=== PATIENT | female | born 1960 | race Caucasian/White ===

== ENCOUNTER → 2023-08-29 15:29 | Outpatient (REF) | payer MEDICARE, SELFPAY | LOC: HWRAD 15:29 | PROVIDERS: ATTENDING PHYSICIAN Otolaryngology; FAMILY PHYSICIAN Nurse Practitioner; REFERRING PHYSICIAN Internal Medicine Geriatric Medicine | DX: J32.4 Chronic pansinusitis (principal) | CPT/HCPCS: 70486 ==

== ENCOUNTER → 2023-10-02 08:29 | Outpatient (REF) | payer MEDICARE, SELFPAY | LOC: HWRAD 08:29 | PROVIDERS: ATTENDING PHYSICIAN Internal Medicine Geriatric Medicine; REFERRING PHYSICIAN Nurse Practitioner | DX: N95.9 Unspecified menopausal and perimenopausal disorder (principal) | CPT/HCPCS: 77080 ==

== ENCOUNTER → 2023-12-29 13:46 | Outpatient (REF) | payer MEDICARE, SELFPAY | LOC: EMG 13:46 | PROVIDERS: ATTENDING PHYSICIAN Physician Assistant Surgical; FAMILY PHYSICIAN Internal Medicine Geriatric Medicine | DX: M54.16 Radiculopathy, lumbar region (principal) | CPT/HCPCS: 95886; 95910 ==

== ENCOUNTER → 2024-01-21 12:25 | Outpatient (REF) | payer MEDICARE, SELFPAY | LOC: MRI 3T 12:25 | PROVIDERS: ATTENDING PHYSICIAN Physician Assistant Surgical; FAMILY PHYSICIAN Internal Medicine Geriatric Medicine | DX: M25.561 Pain in right knee (principal); M62.58 Muscle wasting and atrophy, not elsewhere classified, other site | CPT/HCPCS: 73718; 73721 ==

== ENCOUNTER → 2024-02-14 15:04 | Outpatient (REF) | payer MEDICARE, SELFPAY | LOC: WDC 15:04 | PROVIDERS: ATTENDING PHYSICIAN Obstetrics & Gynecology; FAMILY PHYSICIAN Internal Medicine Geriatric Medicine | DX: Z12.31 Encounter for screening mammogram for malignant neoplasm of breast (principal) | CPT/HCPCS: 77063; 77067 ==

== ENCOUNTER → 2024-03-05 14:53 | Outpatient (REF) | payer OTHER, SELFPAY | LOC: HWRAD 14:53 | PROVIDERS: ATTENDING PHYSICIAN Student in an Organized Health Care Education/Training Program; FAMILY PHYSICIAN Internal Medicine Geriatric Medicine | DX: E07.9 Disorder of thyroid, unspecified (principal) | CPT/HCPCS: 76536 ==

== ENCOUNTER 2024-03-18 13:53 | Outpatient (RCR) | payer OTHER, SELFPAY | END 2024-03-18 23:59 | disposition home or self-care (01) | LOC: RPT 13:53 | PROVIDERS: ATTENDING PHYSICIAN Orthopaedic Surgery; FAMILY PHYSICIAN Nurse Practitioner Adult Health | DX: M17.11 Unilateral primary osteoarthritis, right knee (principal); Z73.6 Limitation of activities due to disability; R26.89 Other abnormalities of gait and mobility; T14.8XXD Other injury of unspecified body region, subsequent encounter | CPT/HCPCS: 97110; 97140; 97163 ==

== ENCOUNTER 2024-03-25 10:45 | Emergency (ER) | payer OTHER, SELFPAY ==
[2024-03-25] VITALS (7 sets, daily range): BP systolic 133–169; BP diastolic 61–85; BMI 28.8
[2024-03-25 12:57] LABS: % Basophils 0.7 % (0-2); % Eosinophils 0.7 % (0-6); % Immature Granulocytes 0.3 % (0-0.5); % Lymphocytes 23.8 % (20.5-51.1); % Monocytes 10.8 % (1.7-9.3); % Neutrophils 63.7 % (42.2-75.2); Absolute Basophils 0.1 10^3/uL (0-0.2); Absolute Eosinophils 0.1 10^3/uL (0-0.7); Absolute Lymphocytes 1.6 10^3/uL (1.2-3.4); Absolute Monocytes 0.7 10^3/uL (0.1-0.6); Absolute Neutrophils 4.2 10^3/uL (1.4-6.5); Hematocrit 40.7 % (37.0-47.0); Hemoglobin 14.2 g/dL (12.0-16.0); Mean Corp Hgb Conc. 34.9 g/dL (33.0-37.0); Mean Corpuscular Hgb 33.5 pg (27.0-31.0); Mean Platelet Volume 11.2 fL (7.4-10.4); Nucleated Red Blood Cells % 0 %; Platelet Count 209 10^3/uL (130-400); Red Blood Cell Count 4.24 10^6/uL (4.20-5.40); Red Cell Dist. Width 12.8 % (11.5-14.5); White Blood Cell Count 6.7 10^3/uL (4.8-10.8)
[2024-03-25 13:13] LABS: ALT (SGPT) 11 U/L (0-35); AST (SGOT) 27 U/L (14-36); Alkaline Phosphatase 66 U/L (38-126); Blood Urea Nitrogen 16 mg/dl (7-17); Carbon Dioxide 29 mmol/L (22-30); Chloride 102 mmol/L (98-107); Estimated Creatinine Clearance 95 ml/min; Glucose 91 mg/dl (70-99); Potassium 4.2 mmol/L (3.5-5.1); Sodium 137 mmol/L (135-145); Total Bilirubin 0.6 mg/dl (0.2-1.3); Total Protein 6.2 g/dl (6.3-8.2); eGFR > 60.00
[2024-03-25 13:24] LABS: Troponin I < 0.012 ng/ml
--- NOTE | 2024-03-25 15:29 | ED.GENMED ---
History of Present Illness
General
Chief Complaint: Chest Problem
Source: patient
Exam Limitations: none
Time Seen by Provider: 03/25/24 12:52
History of Present Illness
History of Present Illness:
63-year-old female with history of asthma presents complaining of chest discomfort onset last night. The pain is pleuritic in nature. She notes shortness of breath. She has a history of asthma and typically when she has tightness like this she
uses her inhaler and the symptoms improve however it has yet to improve. She is healthy otherwise.
Past History
Past History
ED Past Medical History: Asthma
ED Past Surgical History: Other (Discectomy)
Social History
Tobacco: Non-smoker
Personal:
Living: with family
Phy Exam
Physical Exam
Physical Exam:
General: Well-appearing female no acute respiratory distress
HEENT: Normocephalic atraumatic
Heart: RRR,
Lungs: CTA bilaterally
Abd: soft, nontender
Ext: no cyanosis
Skin: Warm rash or lesions.
Course
Orders/Labs/Results
Orders:
Orders
03/25/24 10:48
Electrocardiogram (*1) Urgent
Reason for Study: Chest Pain
EKG- Treatment ONCE
03/25/24 12:37
Complete Blood Count/With Diff Urgent
Comprehensive Metabolic Panel Urgent
Troponin I Urgent
03/25/24 13:04
CT Chest PE Study Urgent
Comment:
Reason For Exam: left chest pain
03/25/24 15:46
Ketorolac [Toradol] 15 mg IV NOW STA
Abnormal Lab Results
03/25/24
12:37
MCH 33.5 H pg
(27.0-31.0)
MPV 11.2 H fL
(7.4-10.4)
Absolute Monos (auto) 0.7 H 10^3/uL
(0.1-0.6)
Monocytes % 10.8 H %
(1.7-9.3)
Total Protein 6.2 L g/dl
(6.3-8.2)
03/25/24 12:37
03/25/24 12:37
Vital Signs
Initial and Last Documented VS:
Initial Vital Signs
Temp Pulse Resp BP Pulse Ox
99.1 F 66 16 146/83 98
03/25/24 10:55 03/25/24 10:55 03/25/24 10:55 03/25/24 10:55 03/25/24 10:55
Last Documented Vital Signs
Temp Pulse Resp BP Pulse Ox
97.7 F 64 17 169/85 98
03/25/24 12:39 03/25/24 13:15 03/25/24 13:15 03/25/24 13:00 03/25/24 13:15
MDM/Problems Addressed
Differential Diagnosis Includes:
Chest discomfort. Consider ACS versus PE versus chest wall pain. Patient flies frequently. PE study ordered
Labs reviewed troponin negative EKG shows normal sinus rhythm without ischemic changes.
Pulse ox 100% heart rate normal
*Critical Care Note
Total Time (30-74mins, 75-104mins- exclusive of procedures): Not Applicable
Update Note
Update Note:
PE study negative for pulmonary embolism lungs are clear. Troponin undetectable. Patient's symptoms improved with Toradol. I suspect chest wall discomfort. Will recommend NSAIDs stable for discharge
ED Attending Note
-
Portions of this chart may have been created with voice recognition software.� Occasional wrong word or��sound alike� substitutions may have occurred due to the inherent limitations of voice recognition software.
Discharge Plan
Departure
Patient Disposition: Home (Routine Discharge)
Date of Disposition: 03/25/24
Time of Disposition: 16:54
Patient with high blood pressure during this ER visit?: No
Discharge Problem:
Chest pain
Instructions: Chest Pain PCP Follow Up
Prescriptions:
New
ibuprofen 600 mg tablet
600 mg PO Q8H PRN (Reason: Pain) Qty: 30 0RF
No Action
gabapentin 300 mg Capsule
300 mg PO HS
Gemtesa 75 mg Tablet
75 mg PO DAILY
hydrocodone-acetaminophen 5-325 mg tablet
1 tab PO BID PRN (Reason: pain) Qty: 14 0RF
diclofenac potassium 50 mg tablet
50 mg PO BID PRN (Reason: pain) Qty: 14 0RF
Referrals:
Feng Bianchi MD [Family Provider] -
Activity Restrictions/Additional Instructions:
As discussed, your workup here is negative. Your discomfort may be coming from your chest wall. Use ibuprofen if needed for pain. Return for worsening symptoms otherwise follow-up with your doctor
Interventions
Interventions:
*Risk Screen - Suicide Last Done: 03/25/24 10:55
*General Assessment Last Done: 03/25/24 12:28
*Neglect/Abuse Screening Last Done: 03/25/24 10:55
ED- Fall Risk Assessment Last Done: 03/25/24 12:37
*ED COVID-19 Vaccine History Last Done: 03/25/24 12:28
ED- Cardiac Assessment Last Done: 03/25/24 12:36
ED- Pulmonary Assessment Last Done: 03/25/24 12:36
Discharge Date and Time
Print Language: SETSWANA
[2024-03-25] MEDS: TORADOL 15 MG IV (15:52)
== END 2024-03-25 17:34 | disposition home or self-care (01) ==
LOC: EMR 10:45
PROVIDERS: EMERGENCY PHYSICIAN Emergency Medicine; FAMILY PHYSICIAN Internal Medicine Geriatric Medicine
DX: R07.89 Other chest pain (principal); J45.909 Unspecified asthma, uncomplicated
CPT/HCPCS: 99285; 96374; 71275; 80053; 84484; 85025; 93005; Q9967

== ENCOUNTER 2024-04-10 14:00 | Outpatient (RCR) | payer OTHER, SELFPAY | END 2024-04-10 23:59 | disposition home or self-care (01) | LOC: RPT 14:00 | PROVIDERS: ATTENDING PHYSICIAN Orthopaedic Surgery; FAMILY PHYSICIAN Nurse Practitioner Adult Health | DX: M17.11 Unilateral primary osteoarthritis, right knee (principal); Z73.6 Limitation of activities due to disability; R26.89 Other abnormalities of gait and mobility; T14.8XXD Other injury of unspecified body region, subsequent encounter | CPT/HCPCS: 97110; 97530 ==

== ENCOUNTER 2024-05-30 06:02 | Day surgery (SDC) | payer OTHER, SELFPAY ==
[2024-05-13 13:56] VITALS: BMI 28.5
[2024-05-13 14:10] LABS: Hematocrit 41.5 % (37.0-47.0); Mean Corp Hgb Conc. 33.7 g/dL (33.0-37.0); Mean Corpuscular Hgb 33.4 pg (27.0-31.0); Mean Platelet Volume 11.6 fL (7.4-10.4); Platelet Count 246 10^3/uL (130-400); Red Blood Cell Count 4.19 10^6/uL (4.20-5.40); Red Cell Dist. Width 14.2 % (11.5-14.5); White Blood Cell Count 4.2 10^3/uL (4.8-10.8)
[2024-05-13 14:34] LABS: Glycohemoglobin (HgbA1c) 4.7 % (4.0-5.6)
[2024-05-13 14:45] LABS: ALT (SGPT) 12 U/L (0-35); AST (SGOT) 24 U/L (14-36); Albumin 3.9 g/dl (3.5-5.0); Alkaline Phosphatase 77 U/L (38-126); Blood Urea Nitrogen 18 mg/dl (7-17); Calcium 9.4 mg/dl (8.4-10.2); Carbon Dioxide 30 mmol/L (22-30); Chloride 102 mmol/L (98-107); Estimated Creatinine Clearance 73 ml/min; Glucose 93 mg/dl (70-99); Potassium 5.2 mmol/L (3.5-5.1); Sodium 137 mmol/L (135-145); Total Bilirubin 0.4 mg/dl (0.2-1.3); Total Protein 6.2 g/dl (6.3-8.2); eGFR > 60.00
[2024-05-13 15:32] VITALS: BMI 28.5
[2024-05-30] VITALS (21 sets, daily range): BP systolic 102–140; BP diastolic 45–88; PULSE 74; O2SAT 98
[2024-05-30] MEDS: TYLENOL 650 MG PO ×5 (06:21→23:15)
[2024-05-30] MEDS: MOBIC 15 MG PO (06:21)
[2024-05-30] MEDS: NORMOSOL-R/PLASMALYTE-A 1000 IV ×2 (06:42→10:00)
--- NOTE | 2024-05-30 06:53 | W.DS.TRANS ---
DC Summary - [employer] Att[employer]
-
Discharge Instructions:
Sleep Apnea Risk Low
Discharge Diagnosis/Procedures R TKA 05/30/24
Diet As tolerated
Activity With Walker
Driving Restrictions No driving
Bathing Restrictions OK to Shower
Other Services PT
Instructions:
Stand-Alone Forms: Total Hip/Knee Replacement D/C
Changes to Home Medications: Yes
Discharge Medications:
DC Medications w/original date entered in [employer]
Fish Oil 1 dose PO DAILY 05/10/24
Peak For Her 1 dose PO DAILY 05/10/24
Probiotic 1 dose PO DAILY 05/10/24
Spm Active 1 dose PO DAILY 05/10/24
Ultra 4 Spectrum Probiotic 1 dose PO DAILY 05/10/24
cetirizine 10 mg tablet (Zyrtec) 10 mg PO HS 05/10/24
prasterone (dhea)-calcium carbonate 10 mg-47 mg calcium tablet (DHEA) 1 tab PO DAILY 05/10/24
progesterone 100 mg PO HS 05/10/24
testosterone 1 dose PO DAILY 05/10/24
vitamin B complex 1 tab PO DAILY 05/10/24
vitamin D3-vitamin K2 1 dose PO DAILY 05/10/24
zinc 50 mg tablet 50 mg PO DAILY 05/10/24
mupirocin 2 % topical ointment 1 applic intranasal BID #1 tube 05/13/24
acetaminophen 325 mg tablet (Tylenol) 650 mg (2 x 325 mg) PO QID #1 tab 05/30/24
aspirin 325 mg tablet 325 mg PO DAILY blood clot prevention #1 tab 05/30/24
dexamethasone 4 mg tablet 4 mg PO BID inflammation #6 tabs 05/30/24
docusate sodium 100 mg capsule (Colace) 100 mg PO BID stool softner #1 cap 05/30/24
famotidine 20 mg tablet 20 mg PO HS GI prophylaxis #30 tabs 05/30/24
gabapentin 300 mg capsule 300 mg PO HS sleep/pain #10 caps 05/30/24
hydrocodone 5 mg-acetaminophen 325 mg tablet 1 tab PO Q6H PRN 1 tab moderate pain or 2 if severe #30 tabs 05/30/24
magnesium hydroxide 400 mg/5 mL oral suspension (Milk of Magnesia) 30 ml PO HS PRN Constipation #1 mL 05/30/24
meloxicam 15 mg tablet 15 mg PO DAILY anti-inflammatory #14 tabs 05/30/24
ondansetron 4 mg disintegrating tablet 4 mg PO Q6H PRN n/v #20 tabs 05/30/24
sennosides 8.6 mg tablet (Senokot) 17.2 mg (2 x 8.6 mg) PO BID laxative #2 tabs 05/30/24
Home Medication Changes
mupirocin 2 % topical ointment 1 applic intranasal BID #1 tube 05/13/24
acetaminophen 325 mg tablet (Tylenol) 650 mg (2 x 325 mg) PO QID #1 tab 05/30/24
aspirin 325 mg tablet 325 mg PO DAILY blood clot prevention #1 tab 05/30/24
dexamethasone 4 mg tablet 4 mg PO BID inflammation #6 tabs 05/30/24
docusate sodium 100 mg capsule (Colace) 100 mg PO BID stool softner #1 cap 05/30/24
famotidine 20 mg tablet 20 mg PO HS GI prophylaxis #30 tabs 05/30/24
gabapentin 300 mg capsule 300 mg PO HS sleep/pain #10 caps 05/30/24
hydrocodone 5 mg-acetaminophen 325 mg tablet 1 tab PO Q6H PRN 1 tab moderate pain or 2 if severe #30 tabs 05/30/24
magnesium hydroxide 400 mg/5 mL oral suspension (Milk of Magnesia) 30 ml PO HS PRN Constipation #1 mL 05/30/24
meloxicam 15 mg tablet 15 mg PO DAILY anti-inflammatory #14 tabs 05/30/24
ondansetron 4 mg disintegrating tablet 4 mg PO Q6H PRN n/v #20 tabs 05/30/24
sennosides 8.6 mg tablet (Senokot) 17.2 mg (2 x 8.6 mg) PO BID laxative #2 tabs 05/30/24
Pending Results: No
[2024-05-30] MEDS: ZOFRAN 4 MG IV ×2 (09:17→15:55)
[2024-05-30] MEDS: NORCO 5/325 1 TABLET PO (10:53)
--- NOTE | 2024-05-30 13:40 | PTCARENOTE ---
Pt received from the PACU via bed. Transport was w/o incident. Pt is AAOX3, Pt's right knee with Mepilex dressing C/D/I, Pt denies nausea, and c/o right knee pain rating 7/10 on pain scale. Will medicate for pain as ordered. Pt is able to wiggle
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 VSS, Pt is afebrile. Pt instructed on plan of care, Pt verbalized understanding of instructions. Call molina
is within reach.
[2024-05-30] MEDS: DILAUDID 0.5 MG IV (14:17)
[2024-05-30] MEDS: ANCEF 5 IV ×2 (14:17→21:21)
[2024-05-30] MEDS: VISBIOME 1 CAP PO (14:18)
--- NOTE | 2024-05-30 16:17 | OR.RPT ---
Operative Report
Operative Report
Orthopaedic Surgery Operative Note
DATE OF OPERATION: 05/30/2024
PREOPERATIVE DIAGNOSES: Osteoarthritis, right knee.
POSTOPERATIVE DIAGNOSES: Osteoarthritis, right knee.
OPERATION PERFORMED:
1) Right total knee arthroplasty (CPT 64961)
2) Intraosseous administration of analgesic (CPT 34963)
SURGEON: Pedro Clark MD
ASSISTANTS: Demetri Ward PA-C who helped with patient and limb positioning and retraction
ANESTHESIA: Spinal by anesthesia plus intraoperative infusion of morphine into the tibial metaphysis by Dr. Clark
COMPLICATIONS: None.
ESTIMATED BLOOD LOSS: 20mL
DRAINS: None
TOURNIQUET TIME: 43 minutes.
IMPLANTS:
- Elias Persona CR Femur, size 8
- Elias Persona tibia base plate, size D
- Elias Persona medial constrained articular surface, 12 mm
- All-polyethylene patellar component, size 29
- DJO Jackson bone cement
INDICATIONS: The patient presented to my office with debilitating right knee pain due to osteoarthritis. We reviewed the natural history of this problem, as well as the risks, benefits, and alternatives of various treatment options. The patient
exhausted all nonoperative treatment options and wished to proceed with knee replacement surgery. The patient understood the risks which included, but were not limited to, bleeding, infection, failure to relieve pain, more pain than preop, damage to
blood vessels and nerves, need for reoperation, mechanical failure of the implants, wound healing problems, stiffness, instability, blood clot, pulmonary embolism, myocardial infarction, pneumonia, arrhythmia, CVA, and . The patient accepted
these risks and wished to proceed. All questions were answered, and informed consent was obtained.
PROCEDURE IN DETAIL: The patient was identified in the preoperative holding area. The right knee was identified as the operative site. The patient was taken in the operating room and placed in a supine position on the operating table. Spinal/General
anesthesia was performed. IV antibiotics and tranexamic acid were administered. An SCD was placed on the left lower extremity. A well-padded tourniquet was placed on the proximal thigh. All bony prominences were well padded. The right lower
extremity was prepped and draped in the usual sterile fashion.
We performed a surgical time-out. An interarticular block was performed with local anesthetic with epinephrine. The limb was exsanguinated with an Esmarch bandage, then the tourniquet was inflated to 250 mmHg. I performed interosseous administration
of morphine-saline solution via a Jamshidi style intraosseous needle into the proximal medial tibial metaphysis as described by Ken Armijo MD. This was performed to aid in pain control. A midline skin incision was made followed by a medial
parapatellar arthrotomy. A subperiosteal peel was performed on the medial tibia. I excised part of the infrapatellar fat pad to improve our visualization as well as tissue over anterior femur. The patella was everted and the knee was flexed. I
excised the remnants of the anterior and posterior cruciate ligaments as well as tibial and femoral osteophytes with rongeurs.
The knee was flexed, and the extramedullary tibial cutting guide was aligned. Moore was aligned at neutral, rotation was centered on the tibial tubercle, and coronal alignment was aligned with the mechanical axis of the tibia and center of the ankle
joint. The cut height was 2mm off the lateral tibia joint surface due to valgus. The guide was secured into place. The MCL and LCL were protected. The tibia surface was cut. The cut surface was inspected after removal to ensure appropriate height
and slope based on the preoperative plan. The cut was checked with a drop amrit. It was centered nicely at the ankle.
A drill was used to open the femoral canal. The intramedullary distal femoral cutting guide was inserted into the femur. This was set at 6 degrees +0. This was secured into place with three pins. The cut level was checked with an rafael wing. The
distal femur was cut through the cutting guide. The IM guide was reinserted to double check that the level of resection was flush and in appropriate alignment.
Fargo�s line and the transepicondylar axis were marked on the femur. The femoral sizing guide was applied to the anterior femur. Pins were inserted, and the 4-in-1 cutting guide was applied and secured into place. The rotation was compared to
Fargo�s line, the transepicondylar axis, and the neutral tibia cut and was found to be appropriate. The width was checked and found to be appropriate and lateralized on the femur. The anterior, posterior, and chamfur cuts were made. A lamina
cut off saw set up operator was used to open the flexion gap, and posterior osteophytes were removed with a curved osteotome. The remnant medial and lateral meniscus were also removed. I prophylactically cauterized the lateral geniculate arteries. A 10mm spacer block
was applied to the flexion gap and was noted to be balanced medially and laterally. The knee was extended, and the block showed symmetric to extension and flexion gaps.
The tibia was exposed and sized. Rotation was set in line with the tibial tubercle and congruent with the femur. The trial was secured into place with two pins. The trial femur was impacted into place, and a trial articular surface was placed. The
knee was taken through range of motion and noted to be stable throughout the arc of motion without gaping or excess tension. In extension, a measured resection of the patella was performed. The patella was sized, and lug holes were drilled. A trial
patella component was applied, and it was noted to track centrally throughout the arc of motion without need for further releases.
The trials were removed. The tibia keel was prepared with the punch and the drill. The bone surfaces were irrigated with sterile saline and dried. The cement was mixed in a vacuum mixer. Cement gun was used to apply cement to the tibial surface and
the undersurface of the tibial implant. Cement was pressurized into the tibial canal and tibia surface. The tibial component was impacted into place. Excess cement was removed. Cement was applied to the femoral surface and the femoral component. The
femoral component was impacted into place, and excess cement removed. A trial articular surface was inserted, and the knee was extended while the cement polymerized. The tourniquet was let down, and meticulous hemostasis was achieved. Dilute
betadine was poured into the wound and allowed to soak for 3 minutes. The knee was irrigated with copious normal saline.
Once the cement was polymerized, the trial articular surface was removed. Any excess cement was removed. The knee was trialed, and the final articular surface was selected and inserted into the tibial locking mechanism. The knee was reduced. A fresh
drape was applied to the surgical field.
The arthrotomy was closed with 0-PDS. Once closed, an interarticular block was performed with local anesthetic with epi. The deep dermal layer was closed with 2-0 PDS, and the subcuticular skin was closed with 3-0 monocryl. A Dermabond Prineo
dressing was applied to the skin in full flexion. Once this was completely dry, a sterile waterproof dressing was applied.
The anesthesia team performed an adductor canal block in the OR. The patient awoke from anesthesia without any difficulties. The sponge and instrument counts were correct x2 at the end of the case.
Shaw Clark MD
[2024-05-30] MEDS: VALIUM 5 MG PO ×2 (17:18→23:14)
[2024-05-30] MEDS: LYRICA 100 MG PO ×2 (17:19→23:15)
[2024-05-30] MEDS: ASPIRIN 325 MG PO (17:19)
[2024-05-30] MEDS: SENOKOT 17.2 MG PO (20:50)
[2024-05-30] MEDS: BACTROBAN 2% OINTMENT 1 APPLIC NASAL (20:50)
[2024-05-30] MEDS: COLACE 100 MG PO (20:50)
[2024-05-30] MEDS: ULTRAM 50 MG PO (21:23)
[2024-05-30] MEDS: ZYRTEC 10 MG PO (21:23)
[2024-05-30] MEDS: TORADOL 15 MG IV (23:14)
[2024-05-30] MEDS: DECADRON 4 MG IV (23:15)
[2024-05-31 03:10] VITALS: BP 120/56
[2024-05-31] MEDS: TYLENOL PO (04:45)
[2024-05-31] MEDS: TORADOL 15 MG IV (06:12)
[2024-05-31] MEDS: ULTRAM 50 MG PO (06:12)
[2024-05-31] MEDS: DECADRON 4 MG IV (06:12)
[2024-05-31 07:05] VITALS: BP 116/59
[2024-05-31 09:02] VITALS: BP 128/63; BP 130/67; PULSE 75; O2SAT 100
[2024-05-31] MEDS: SENOKOT 17.2 MG PO (09:22)
[2024-05-31] MEDS: COLACE 100 MG PO (09:22)
[2024-05-31] MEDS: LYRICA 100 MG PO (09:22)
[2024-05-31] MEDS: ASPIRIN 325 MG PO (09:22)
[2024-05-31] MEDS: BACTROBAN 2% OINTMENT 1 APPLIC NASAL (09:22)
[2024-05-31] MEDS: TYLENOL 650 MG PO (09:22)
[2024-05-31] MEDS: VISBIOME 1 CAP PO (09:22)
[2024-05-31 09:30] VITALS: BP 128/59; PULSE 75; O2SAT 99
[2024-05-31] MEDS: VALIUM PO (09:33)
--- NOTE | 2024-05-31 09:48 | W.PN.ORTHO ---
Today's Communication / Plan
-
d/c
Assessment
.
Distal Motor Intact: Yes
Dressing:
Clean, dry and intact.
Assessment:
Spasm-severe after surgery-added Lyrica and Valium--resolved this am off meds
Plan
.
Surgery / Date: R TKA 05/30/24
DVT Prophylaxis: Aspirin
Activity:
Out of bed.
PT/OT
Discharge Plan: Home w/ Outpatient PT
Subjective
.
.:
Patient resting comfortably.
Vital Signs and Labs
.
Vital Signs and Labs:
Lab Results
05/13/24 12:53
05/13/24 12:53
Temp Pulse Resp BP Pulse Ox
98.3 F 75 16 116/59 97
05/31/24 07:05 05/31/24 07:05 05/31/24 07:05 05/31/24 07:05 05/31/24 07:05
Non-invasive Hgb result: 12.0
Physical Exam
-
HEENT: No pallor, cyanosis, or jaundice. Throat clear.
NECK: Supple. No JVD.
RESPIRATORY: Lungs clear to auscultation.
CVS: S1, S2 normal. RRR.� No murmur, rub or gallop.
ABDOMEN: Soft, non-tender. No distension. BS+/normal.
EXTREMITIES: strength equal, no calf pain with palpation
PUBLIC WELFARE DIRECTOR: AOx3. No focal deficits. raftsman grossly intact
--- NOTE | 2024-05-31 10:14 | CM ---
Initial assessment completed
Pt reports she lives with her in a 3 story home; 1 [address]; 14 steps to FF
Independent, drives
DME - rolling walker, single point cane, raised toilet
SNF/HH - denies past hx
Has ride at d/c
PCP - Gera Snow
Pharm - [facility]. Has Rx/transport
Given IMM
Plan - home with outpatient PT
== END 2024-05-31 11:35 | disposition home or self-care (01) | DRG 470 ==
LOC: SDS 06:02
PROVIDERS: ATTENDING PHYSICIAN Orthopaedic Surgery; REFERRING PHYSICIAN Internal Medicine Geriatric Medicine
PROC: 0SRC069 Replacement of Right Knee Joint with Oxidized Zirconium on Polyethylene Synthetic Substitute, Cemented, Open Approach (ICD-10-PCS; 2024-05-30)
DX: M17.11 Unilateral primary osteoarthritis, right knee (principal); E83.110 Hereditary hemochromatosis
CPT/HCPCS: 27447; 36415; 73560; 80053; 83036; 85027; 87070; 93005; 97110; 97116; 97162; 97166; 97530; 97535; C1713; C1776

== ENCOUNTER 2024-06-24 14:01 | Outpatient (RCR) | payer OTHER, SELFPAY | END 2024-06-24 23:59 | disposition home or self-care (01) | LOC: RPT 14:01 | PROVIDERS: ATTENDING PHYSICIAN Orthopaedic Surgery | DX: Z47.1 Aftercare following joint replacement surgery (principal); M17.11 Unilateral primary osteoarthritis, right knee; Z73.6 Limitation of activities due to disability; R26.2 Difficulty in walking, not elsewhere classified; M62.81 Muscle weakness (generalized); R26.89 Other abnormalities of gait and mobility; M25.561 Pain in right knee; Z96.651 Presence of right artificial knee joint | CPT/HCPCS: 97010; 97110; 97140; 97161 ==

== ENCOUNTER 2024-07-19 10:56 | Outpatient (RCR) | payer OTHER, SELFPAY | END 2024-07-19 23:59 | disposition home or self-care (01) | LOC: RPT 10:56 | PROVIDERS: ATTENDING PHYSICIAN Orthopaedic Surgery | DX: Z47.1 Aftercare following joint replacement surgery (principal); M17.11 Unilateral primary osteoarthritis, right knee; R26.2 Difficulty in walking, not elsewhere classified; Z73.6 Limitation of activities due to disability; M62.81 Muscle weakness (generalized); R26.89 Other abnormalities of gait and mobility; M25.561 Pain in right knee; Z96.651 Presence of right artificial knee joint | CPT/HCPCS: 97010; 97110; 97530 ==

== ENCOUNTER 2024-08-19 15:09 | Outpatient (RCR) | payer MEDICARE, OTHER, SELFPAY | END 2024-08-19 23:59 | disposition home or self-care (01) | LOC: RPT 15:09 | PROVIDERS: ATTENDING PHYSICIAN Orthopaedic Surgery | DX: Z47.1 Aftercare following joint replacement surgery (principal); Z96.651 Presence of right artificial knee joint; M17.11 Unilateral primary osteoarthritis, right knee; Z73.6 Limitation of activities due to disability; R26.2 Difficulty in walking, not elsewhere classified; M62.81 Muscle weakness (generalized); R26.89 Other abnormalities of gait and mobility; M25.561 Pain in right knee | CPT/HCPCS: 97010; 97016; 97110; 97530 ==

== ENCOUNTER 2024-09-25 11:43 | Outpatient (RCR) | payer MEDICARE, OTHER, SELFPAY | END 2024-09-25 23:59 | disposition home or self-care (01) | LOC: RPT 11:43 | PROVIDERS: ATTENDING PHYSICIAN Orthopaedic Surgery | DX: Z47.1 Aftercare following joint replacement surgery (principal); M17.11 Unilateral primary osteoarthritis, right knee; Z73.6 Limitation of activities due to disability; R26.2 Difficulty in walking, not elsewhere classified; M62.81 Muscle weakness (generalized); R26.89 Other abnormalities of gait and mobility; M25.561 Pain in right knee; Z96.651 Presence of right artificial knee joint | CPT/HCPCS: 97110; 97140; 97530 ==

== ENCOUNTER 2024-12-24 08:36 | Outpatient (RCR) | payer MEDICARE, OTHER, SELFPAY | END 2024-12-24 23:59 | disposition home or self-care (01) | LOC: RPT 08:36 | PROVIDERS: ATTENDING PHYSICIAN Orthopaedic Surgery | DX: Z47.1 Aftercare following joint replacement surgery (principal); Z73.6 Limitation of activities due to disability; M25.561 Pain in right knee; M25.661 Stiffness of right knee, not elsewhere classified; R20.0 Anesthesia of skin; R26.89 Other abnormalities of gait and mobility; M62.81 Muscle weakness (generalized); Z96.651 Presence of right artificial knee joint | CPT/HCPCS: 97010; 97110; 97140; 97162 ==

== ENCOUNTER 2024-12-31 08:22 | Outpatient (RCR) | payer MEDICARE, OTHER, SELFPAY | END 2025-01-01 05:47 | disposition home or self-care (01) | LOC: RPT 08:22 | PROVIDERS: ATTENDING PHYSICIAN Orthopaedic Surgery | DX: Z47.1 Aftercare following joint replacement surgery (principal); Z73.6 Limitation of activities due to disability; M25.561 Pain in right knee; M25.661 Stiffness of right knee, not elsewhere classified; R20.0 Anesthesia of skin; R26.89 Other abnormalities of gait and mobility; M62.81 Muscle weakness (generalized); Z96.651 Presence of right artificial knee joint | CPT/HCPCS: 97010; 97110; 97140 ==

== ENCOUNTER 2025-01-15 15:57 | Emergency (ER) | payer MEDICARE, OTHER, SELFPAY ==
[2025-01-15 16:01] VITALS: BP 158/65
[2025-01-15 17:43] VITALS: BMI 27.5
[2025-01-15 17:44] VITALS: BP 148/87
--- NOTE | 2025-01-15 19:29 | ED.GENMED ---
History of Present Illness
General
Chief Complaint: Musculo-Skeletal Complaint
Source: patient
Exam Limitations: none
Time Seen by Provider: 01/15/25 17:38
Nursing documentation reviewed up to this point in time: agreed with
History of Present Illness
History of Present Illness:
see MDM
Past History
Past History
ED Past Medical History: Asthma
ED Past Surgical History: Other (Discectomy)
Social History
Tobacco: Non-smoker
Personal:
Living: with family
Review of Systems
Review of Systems
Allergies reviewed?: Yes
All Other Systems: Not applicable
Phy Exam
Physical Exam
Physical Exam:
GENERAL: Alert , in no apparent distress
EYE: pupils equal and reactive
NECK: Supple
ENT: o/p clr, mmm.
CARDIAC: Regular rate and rhythm .
LUNGS: Clear breath sounds bilaterally, no acute respiratory distress, no wheezes/rales/rhonchi
ABDOMEN: Soft, without focal tenderness, no r/g, no cvat, normal bowel sounds
NEUROLOGICAL: Alert and oriented, no focal neuro deficits
SKIN: Warm and dry, skin intact.
MUSCULOSKELETAL: Normal inspection of both lower extremities, no tenderness to palpation of the knee, there is slight tenderness to the palpation of the posterior calf, no cord, no swelling appreciated, normal pulse, warm and perfused foot, normal
range of motion of the foot and ankle and knee. When she walks she takes a couple steps and then gets a sharp pain in the left calf and then nearly falls but never fully fell. Does not seem like she is weak, she has no numbness
PSYCH: Normal and appropriate interaction.
Course
Orders/Labs/Results
Orders:
Orders
01/15/25 16:06
US Legs, Left [US Periph Venous LOWER Ext LT] Urgent
Comment:
Reason For Exam: pain in calf and behind knee
01/15/25 18:50
CR Knee - Left 4 Or More View* Urgent
Comment:
Reason For Exam: L knee giving out
Tib/Fib, Left 2 View [CR Leg Tibia/fibula Left 2 Vw] Urgent
Comment:
Reason For Exam: left leg pain
01/15/25 19:48
CPK [Creatine Phosphokinase] Urgent
Complete Blood Count/With Diff Urgent
Comprehensive Metabolic Panel Urgent
01/15/25 21:01
Ketorolac [Toradol] 30 mg IM NOW STA
01/15/25 22:09
Crutches-Treatment ONCE
Abnormal Lab Results
01/15/25
19:48
MCH 32.5 H pg
(27.0-31.0)
MPV 10.5 H fL
(7.4-10.4)
Monocytes % 9.7 H %
(1.7-9.3)
Creatine Kinase 25 L U/L
(30-135)
01/15/25 19:48
01/15/25 19:48
Vital Signs
Initial and Last Documented VS:
Initial Vital Signs
Temp Pulse Resp BP Pulse Ox
36.6 C 63 20 158/65 99
01/15/25 16:01 01/15/25 16:01 01/15/25 16:01 01/15/25 16:01 01/15/25 16:01
Last Documented Vital Signs
Temp Pulse Resp BP Pulse Ox
36.6 C 85 18 147/75 99
01/15/25 16:01 01/15/25 21:45 01/15/25 21:45 01/15/25 21:45 01/15/25 21:45
MDM/Problems Addressed
Differential Diagnosis Includes:
see MDM
MDM/Problems Addressed:
Note:
CHIEF COMPLAINT(S)
Right leg pain and sudden instability.
HISTORY OF PRESENT ILLNESS
The patient is a 64-year-old female who reports awakening with sudden onset left leg pain and instability. She describes the pain as commencing early yesterday morning when she attempted to walk down the [place] and feeling pain behind her L knee/calf
that made her feel like her leg is going to give out. ' She localizes the pain below the knee and reports that it intensifies with walking, making ambulation difficult and requiring assistance from others. There was no reported fall or specific
injury leading to these symptoms. The patient denied any known history of arthritis or knee replacement. She is currently attending physical therapy for her leg issues and attended a session today but struggled to walk due to pain and weakness. The
patient has taken Valium and ibuprofen 600 mg for pain relief. She has a history of urinary urgency managed with supplements. She denies any previous history of blood clots.
The patient expressed concerns about potential vascular issues, specifically DVT
ynes tto PT today and was sent here
pt is in PT for her R knee and R IT band
no numbness/tingling/weakness, foot drop, color change, knee swelling, calf swelling, recent travel, trauma, pain radiating from back
MEDICATIONS
- Valium (as needed for this issue)
- Ibuprofen 600mg (as needed for pain)
PHYSICAL EXAM
- GENERAL: Alert , in no apparent distress
EYE: pupils equal and reactive
NECK: Supple
ENT: o/p clr, mmm.
CARDIAC: Regular rate and rhythm .
LUNGS: Clear breath sounds bilaterally, no acute respiratory distress, no wheezes/rales/rhonchi
ABDOMEN: Soft, without focal tenderness, no r/g, no cvat, normal bowel sounds
NEUROLOGICAL: Alert and oriented, no focal neuro deficits
SKIN: Warm and dry, skin intact.
MUSCULOSKELETAL: No edema, well perfused. neg luci's sign
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
plantarflex her ankle normally, sensation intact, when she walks she takes a couple steps and gets a buckling pain in her left calf causing her to nearly fall. She does not seem like she is weak. Has no proprioception problems
PSYCH: Normal and appropriate interaction.
Nursing notes reviewed and vital signs reviewed.
PROBLEM LIST
Acute Problems:
- Right leg pain and sudden instability
PLAN
- Order blood work to evaluate electrolytes and check for rhabdomyolysis.
- Order an x-ray of the right leg to assess for any underlying structural issues.
- Consider ultrasound if further vascular evaluation is deemed necessary.
- Continue pain management with ibuprofen, and consider Valium for muscle spasm relief if indicated.
- Discuss alternative pain management options, including the potential prescription of Vicodin if pain management is inadequate with current medications.
DIFFERENTIAL DIAGNOSIS
The Differential Diagnosis includes, in no particular order and is not limited to:
1. Bakers cyst
2. Vascular deficiency
3. Rhabdomyolysis
4. Arthritis-related pain (osteoarthritis or rheumatoid arthritis)
5. Meniscal injury
6. Ligamentous injury of the knee
7. Neuropathy
8. Muscle spasm or strain
9. Blood clot (Deep vein thrombosis)
10. Electrolyte imbalance
CARE-UPDATE
01/15/25 - 21:34
Patient has no pain at rest but she still has some pain with walking, the crutches are helping her
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 It does not seem neurologic, does not seem vascular, she has got a good pulse and negative DVT study. X-rays are unremarkable
after independently read and reviewed by me. Her labs show a normal CK and potassium. Recommended using Valium for muscle spasms and an anti-inflammatory such as ibuprofen, meloxicam, or Aleve. Advised alternating heat and cold therapy, with an
emphasis on heat for muscle spasms. Patient instructed to use a cane or crutches to avoid full weight-bearing on the affected leg. Discussed history of autoimmune conditions in the family, noting patients existing positive ALEX without confirmed
lupus. Suggested stretching exercises, like glute bridges, may have overstrained the muscle. Advised to minimize movement and use Toradol for inflammation. Plan includes reassessment after following these interventions and considering an MRI if
symptoms persist.
*Pulse Oximetry
SaO2: 99
Oxygen Mode of Delivery: Room air
Patient hypoxic: no (99)
*Critical Care Note
Total Time (30-74mins, 75-104mins- exclusive of procedures): Not Applicable
ED Attending Note
-
Portions of this chart may have been created with voice recognition software.� Occasional wrong word or��sound alike� substitutions may have occurred due to the inherent limitations of voice recognition software.
Discharge Plan
Departure
Patient Disposition: Home (Routine Discharge)
Date of Disposition: 01/15/25
Time of Disposition: 21:32
Patient with high blood pressure during this ER visit?: No
Condition: Fair
Covid-19: Not Applicable
Discharge Problem:
Gastrocnemius muscle strain
Instructions: Muscle Strain (DC)
Prescriptions:
No Action
cetirizine [Zyrtec] 10 mg Tablet
10 mg PO HS
zinc 50 mg Tablet
50 mg PO DAILY
DHEA 10 mg-47 mg calcium Tablet
1 tab PO DAILY
Fish Oil
1 dose PO DAILY
Probiotic
1 dose PO DAILY
Spm Active
1 dose PO DAILY
testosterone
1 dose PO DAILY
vitamin B complex Tablet
1 tab PO DAILY
Peak For Her
1 dose PO DAILY
Ultra 4 Spectrum Probiotic
1 dose PO DAILY
progesterone
100 mg PO HS
vitamin D3-vitamin K2
1 dose PO DAILY
mupirocin 2 % ointment
1 applic intranasal BID Qty: 1 0RF
Patient Comments:
last dose was this am. pt started on 05/27/24.
aspirin 325 mg tablet
325 mg PO DAILY Qty: 1 0RF
Rx Instructions:
Take with food
docusate sodium [Colace] 100 mg capsule
100 mg PO BID Qty: 1 0RF
hydrocodone-acetaminophen 5-325 mg tablet
1 tab PO Q6H PRN (Reason: 1 tab moderate pain or 2 if severe) Qty: 30 0RF
Rx Instructions:
Dx orthopedic surgery
ongoing therapy
famotidine 20 mg tablet
20 mg PO HS Qty: 30 0RF
Rx Instructions:
post-op
dexamethasone 4 mg tablet
4 mg PO BID Qty: 6 0RF
Rx Instructions:
take with food
post-op use only
gabapentin 300 mg capsule
300 mg PO HS Qty: 10 0RF
Rx Instructions:
*POST-OP USE ONLY
meloxicam 15 mg tablet
15 mg PO DAILY Qty: 14 0RF
Rx Instructions:
take with food
post-op
magnesium hydroxide [Milk of Magnesia] 400 mg/5 mL suspension
30 ml PO HS PRN (Reason: Constipation) Qty: 1 0RF
sennosides [Senokot] 8.6 mg tablet
17.2 mg PO BID Qty: 2 0RF
ondansetron 4 mg tablet,disintegrating
4 mg PO Q6H PRN (Reason: n/v) Qty: 20 0RF
Rx Instructions:
take 1/2h b/f pain med if recurrent nausea
allow to dissolve in mouth w/o water
acetaminophen [Tylenol] 325 mg tablet
650 mg PO QID Qty: 1 0RF
Rx Instructions:
SCHEDULED DOSING
Referrals:
Gera Snow CRNP [Family Provider]
Activity Restrictions/Additional Instructions:
Your pain could be from a strain or spasm of your Gaster anemias muscle. Try heat and ice alternating. Use the crutches to help partial weightbearing. Use your Valium as directed for muscle spasm and take your ibuprofen every 8 hours starting
tomorrow for pain and inflammation. Make sure to follow-up with orthopedics as you planned. Return for swelling, skin changes, weakness in the leg, numbness tingling foot drop, fever etc.
Interventions
Interventions:
*Risk Screen - Suicide Last Done: 01/15/25 16:01
*General Assessment Last Done: 01/15/25 16:01
*Neglect/Abuse Screening Last Done: 01/15/25 16:01
*ED- Fall Risk Assessment Last Done: 01/15/25 18:32
*ED COVID-19 Vaccine History Last Done: 01/15/25 17:45
*ED Influenza Vaccine History Last Done: 01/15/25 17:45
*Nursing Disposition Last Done: 01/15/25 21:50
ED-Musculoskeletal Assessment Last Done: 01/15/25 17:44
Discharge Date and Time
Discharge Date/Time: 01/15/25 21:55
Print Language: OCCITAN
[2025-01-15 19:57] VITALS: BP 153/78
[2025-01-15 20:01] LABS: Hematocrit 40.8 % (37.0-47.0); Hemoglobin 13.8 g/dL (12.0-16.0); Mean Corp Hgb Conc. 33.8 g/dL (33.0-37.0); Mean Corpuscular Volume 96.2 fL (81.0-99.0); Nucleated Red Blood Cells % 0 %; Platelet Count 238 10^3/uL (130-400); Red Cell Dist. Width 13.3 % (11.5-14.5)
[2025-01-15 20:26] LABS: ALT (SGPT) 10 U/L (0-35); AST (SGOT) 23 U/L (14-36); Albumin 4.1 g/dl (3.5-5.0); Alkaline Phosphatase 67 U/L (38-126); Blood Urea Nitrogen 15 mg/dl (7-17); Calcium 9.5 mg/dl (8.4-10.2); Carbon Dioxide 27 mmol/L (22-30); Chloride 103 mmol/L (98-107); Estimated Creatinine Clearance 91 ml/min; Glucose 84 mg/dl (70-99); Potassium 4.4 mmol/L (3.5-5.1); Sodium 135 mmol/L (135-145); Total Protein 6.3 g/dl (6.3-8.2); eGFR > 60.00
[2025-01-15] MEDS: TORADOL 30 MG IM (21:21)
[2025-01-15 21:45] VITALS: BP 147/75
== END 2025-01-15 21:55 | disposition home or self-care (01) ==
LOC: EMR 15:57
PROVIDERS: Physician Assistant; EMERGENCY PHYSICIAN Student in an Organized Health Care Education/Training Program
DX: S86.812A Strain of other muscle(s) and tendon(s) at lower leg level, left leg, initial encounter (principal); X58.XXXA Exposure to other specified factors, initial encounter; J45.909 Unspecified asthma, uncomplicated
CPT/HCPCS: 99284; 96372; 73564; 73590; 80053; 82550; 85025; 93971

== ENCOUNTER 2025-01-20 10:03 | Outpatient (RCR) | payer MEDICARE, OTHER, SELFPAY | END 2025-01-20 23:59 | disposition home or self-care (01) | LOC: RPT 10:03 | PROVIDERS: ATTENDING PHYSICIAN Orthopaedic Surgery | DX: M76.31 Iliotibial band syndrome, right leg (principal); Z73.6 Limitation of activities due to disability; R26.89 Other abnormalities of gait and mobility; M62.81 Muscle weakness (generalized); Z96.651 Presence of right artificial knee joint | CPT/HCPCS: 97010; 97110; 97140; 97162 ==

== ENCOUNTER → 2025-01-29 14:42 | Outpatient (REF) | payer MEDICARE, OTHER, SELFPAY | LOC: WDC 14:42 | DX: Z12.31 Encounter for screening mammogram for malignant neoplasm of breast (principal) | CPT/HCPCS: 77063; 77067 ==

== ENCOUNTER 2025-02-19 06:52 | Outpatient (RCR) | payer MEDICARE, OTHER, SELFPAY | END 2025-02-24 07:12 | disposition home or self-care (01) | LOC: RPT 06:52 | PROVIDERS: ATTENDING PHYSICIAN Orthopaedic Surgery | DX: M76.31 Iliotibial band syndrome, right leg (principal); Z73.6 Limitation of activities due to disability; R26.89 Other abnormalities of gait and mobility; M62.81 Muscle weakness (generalized); Z96.651 Presence of right artificial knee joint | CPT/HCPCS: 97010; 97110; 97140 ==